=== PATIENT | male | born 1980 | race Hispanic/Latino ===

== ENCOUNTER 2021-11-10 00:16 | Emergency (ER) | payer SELFPAY ==
[2021-11-10 00:34] LABS: Absolute Lymphocytes (CBC) 3.5 K/uL (0.7-4.9); Hematocrit 42.6 % (39.6-49.0); Lymphocytes % 32.1 % (15.3-44.8); MPV 7.6 fL (7.6-11.3); RBC Red Blood Cell Count 4.78 M/uL (4.33-5.43)
[2021-11-10] MEDS ORDERED: PROMETHAZINE INJ 25 MG/ML AMP ONE (00:37)
[2021-11-10] MEDS ORDERED: MEPERIDINE HCL 25 MG/ML SYR ONE (00:38)
[2021-11-10 00:51] LABS: Albumin 4.2 g/dL (3.4-5.0); Bilirubin Total 0.5 mg/dL (0.2-1.0); Potassium 3.2 mmol/L (3.5-5.1); Protein, Total 7.2 g/dL (6.4-8.2)
[2021-11-10] MEDS ORDERED: MORPHINE 4 MG/ML SYR ONE (01:05)
[2021-11-10] MEDS ORDERED: HYDROMORPHONE HCL 1 MG/ML INJ ONE (02:07)
[2021-11-10] MEDS ORDERED: KETOROLAC 30 MG/ML INJ ONE (02:07)
[2021-11-10] MEDS ORDERED: MAGNESIUM SULFATE 1 gm IVPB 1 GM/100 ML BAG IV ONE (02:08)
[2021-11-10] MEDS ORDERED: TAMSULOSIN 0.4 MG SR CAP ONE (02:46)
--- NOTE | 2021-11-10 03:29 | EDPHYS ---
Physician Documentation [facility] Name: Ricardo Kaba Age: 41 yrs Sex: Male : 1980 Arrival Date: 11/10/2021 Time: 00:18 Bed 8 Private MD: ED Physician Sebastian Ortiz HPI: 11/10 01:10 This 41 yrs old Male presents to ER via EMS with complaints of abdominal pain. rn 01:10 The patient presents with abdominal pain right lower quadrant. Onset: The rn symptoms/episode began/occurred 1 hour(s) ago. The symptoms do not radiate. Associated signs and symptoms: Pertinent positives: constipation, nausea, Pertinent negatives: blood in stools, dysuria, fever, shortness of breath, vomiting blood. The symptoms are described as crampy, sharp. Modifying factors: The symptoms are alleviated by nothing, the symptoms are aggravated by nothing. Severity of pain: At its worst the pain was moderate in the emergency department the pain is unchanged. The patient has experienced a previous episode. The patient has not recently seen a physician. Pt reports sudden onset RLQ abd pain, began 1 year prior to arrival, assoc with nausea. No hx of kidney stones. Reports has happened once before and was told had bowel blockage, but given laxatives and "cleared up". No fever. NO trauma. No urinary symptoms. Given fentanyl and zofran by EMS with minimal alleviation of pain.. Historical: - Allergies: 00:24 No Known Allergies; lg3 - Home Meds: 00:24 None [Active]; lg3 - PMHx: 00:24 None; lg3 - PSHx: 00:24 None; lg3 - Immunization history:: Adult Immunizations up to date, Client reports having NOT received the Covid vaccine. - Social history:: Smoking status: Patient denies any tobacco usage or history of. Patient uses alcohol, occasionally. street drugs, marijuana. - Family history:: not pertinent. - Hospitalizations: : No recent hospitalization is reported. ROS: 01:10 Constitutional: Negative for fever, chills, and weight loss, Eyes: Negative for injury, rn pain, redness, and discharge, Neck: Negative for injury, pain, and swelling, Cardiovascular: Negative for chest pain, palpitations, and edema, Respiratory: Negative for shortness of breath, cough, wheezing, and pleuritic chest pain, Abdomen/GI: + RLQ abd pain, + nausea Back: Negative for injury and pain, : Negative for injury, bleeding, discharge, and swelling, MS/Extremity: Negative for injury and deformity, Skin: Negative for injury, rash, and discoloration, Neuro: Negative for headache, weakness, numbness, tingling, and seizure. Exam: 01:10 Constitutional: This is a well developed, well nourished patient who is awake, alert, rn looks uncomfortable Head/Face: Normocephalic, atraumatic. Cardiovascular: Regular rate and rhythm. No pulse deficits. Respiratory: No increased work of breathing, no retractions or nasal flaring. Abdomen/GI: soft, + mild RLQ tenderness, no rebound, no masses Skin: Warm, dry MS/ Extremity: Pulses equal, no cyanosis Neuro: Awake and alert, GCS 15 Vital Signs: 00:22 BP 130 / 82; Pulse 82; Resp 18; Pulse Ox 100% on R/A; Weight 94.35 kg (R); Height 5 ft. lg3 9 in. (175.26 cm) (R); Pain 10/10; 00:28 Temp 97.7(O); lg3 01:03 BP 125 / 88; Pulse 84; Resp 17 S; Pulse Ox 100% on R/A; lg3 02:12 BP 137 / 96; Pulse 76; Resp 18; Pulse Ox 99% on R/A; Pain 10/10; lg3 00:22 Body Mass Index 30.72 (94.35 kg, 175.26 cm) lg3 MDM: 00:19 Patient medically screened. rn 02:18 ED course: Pt finally feeling much better, 2mm UVJ stone, likely dropped into bladder, rn will observe for a little while and dc home. . 03:26 Differential diagnosis: diverticulitis, non-specific abd pain, Ureterolithiasis. Data rn reviewed: vital signs, nurses notes, lab test result(s), radiologic studies, CT scan, and as a result, I will discharge patient. 03:26 Counseling: I had a detailed discussion with the patient and/or guardian regarding: the rn historical points, exam findings, and any diagnostic results supporting the discharge/admit diagnosis, lab results, radiology results, the need for outpatient follow up, to return to the emergency department if symptoms worsen or persist or if there are any questions or concerns that arise at home. Response to treatment: the patient's symptoms have markedly improved after treatment, and as a result, I will discharge patient. Special discussion: I discussed with the patient/guardian in detail that at this point there is no indication for admission to the hospital. It is understood, however, that if the symptoms persist or worsen the patient needs to return immediately for re-evaluation. Based on the history and exam findings, there is no indication for further emergent testing or inpatient evaluation. I discussed with the patient/guardian the need to see the primary care provider for further evaluation of the symptoms. ED course: Pt markedly improved, no longer diaphoretic, pain controlled, sleeping comfortably. Has passed 2mm stone into bladder. Will dc home with prn pain meds and return precautions.. 11/10 00:19 Order name: CBC with Diff; Complete Time: 02:00 rn 11/10 00:19 Order name: CMP; Complete Time: 02:00 rn 11/10 00:19 Order name: Lipase; Complete Time: 02:00 rn 11/10 00:19 Order name: CT Stone Protocol rn 11/10 00:19 Order name: IV Saline Lock; Complete Time: : rn 11/10 00:19 Order name: Labs collected and sent; Complete Time: : rn Administered Medications: 00:39 Drug: Phenergan (promethazine) 12.5 mg Route: IVP; Site: right antecubital; lg3 00:40 Follow up: Response: No adverse reaction lg3 00:40 Drug: Demerol (meperidine) 25 mg Route: IVP; Site: right antecubital; lg3 00:40 Follow up: Response: No adverse reaction lg3 01:02 Drug: morphine 4 mg Route: IVP; Infused Over: 4 mins; Site: right antecubital; lg3 01:02 Follow up: Response: No adverse reaction lg3 02:09 Drug: Dilaudid (HYDROmorphone) 1 mg Route: IVP; Site: right antecubital; lg3 02:10 Follow up: Response: No adverse reaction lg3 02:10 Drug: Ketorolac 30 mg Route: IVP; Site: right antecubital; lg3 02:10 Follow up: Response: No adverse reaction lg3 02:10 Drug: Magnesium Sulfate 1 grams Route: IVPB; Infused Over: 1 hrs; Site: right lg3 antecubital; 02:10 Follow up: Response: No adverse reaction; IV Intake: 100ml lg3 02:43 Drug: Flomax (tamsulosin) 0.4 mg Route: PO; jb4 02:48 Follow up: Response: No adverse reaction lg3 Disposition Summary: 11/10/21 03:28 Discharge Ordered Location: Home rn Problem: new rn Symptoms: have improved rn Condition: Stable rn Diagnosis - Urinary calculus, unspecified rn Followup: rn - With: Private Physician - When: As needed - Reason: Recheck today's complaints, Re-evaluation by your physician Discharge Instructions: - Discharge Summary Sheet rn - Kidney Stones rn - Renal Colic rn Forms: - Medication Reconciliation Form rn - Thank You Letter rn - 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
--- NOTE | 2021-11-10 03:29 | ER ---
Nurse's Notes [facility] Name: Ricardo Kaba Age: 41 yrs Sex: Male : 1980 Arrival Date: 11/10/2021 Time: 00:18 Bed 8 Private MD: Diagnosis: Urinary calculus, unspecified Presentation: 11/10 00:22 Chief complaint: Patient states: right sided abdominal pain radiating to right groin. lg3 Coronavirus screen: Client denies travel out of the [place] in the last 14 days. At this time, the client does not indicate any symptoms associated with coronavirus-19. Ebola Screen: No symptoms or risks identified at this time. Initial Sepsis Screen: Does the patient meet any 2 criteria? No. Patient's initial sepsis screen is negative. Does the patient have a suspected source of infection? No. Patient's initial sepsis screen is negative. Risk Assessment: Do you want to hurt yourself or someone else? Patient reports no desire to harm self or others. Onset of symptoms was November 10, 2021. 00:22 Method Of Arrival: EMS: [facility] lg3 00:22 Acuity: BHAVIK 3 lg3 Triage Assessment: 00:24 General: Appears in no apparent distress. uncomfortable, Behavior is calm, cooperative. lg3 Pain: Complains of pain in right lower quadrant Pain radiates to groin and right femoral area. EENT: No deficits noted. No signs and/or symptoms were reported regarding the EENT system. Neuro: No deficits noted. Philippe Agitation-Sedation Scale (RASS): 0 - Alert and Calm Level of Consciousness is awake, alert, obeys commands, Oriented to person, place, time, situation. Cardiovascular: No deficits noted. Denies chest pain, shortness of breath, Capillary refill < 3 seconds Clubbing of nail beds is absent JVD is absent Patient's skin is warm and dry. Respiratory: No deficits noted. Airway is patent Trachea midline Respiratory effort is even, unlabored, Respiratory pattern is regular, symmetrical. GI: Reports lower abdominal pain, nausea, vomiting. : No deficits noted. No signs and/or symptoms were reported regarding the genitourinary system. Derm: No deficits noted. No signs and/or symptoms reported regarding the dermatologic system. Skin is intact, is healthy with good turgor, Skin is dry, Skin is pink, warm \T\ dry. Musculoskeletal: No deficits noted. No signs and/or symptoms reported regarding the musculoskeletal system. Circulation, motion, and sensation intact. Range of motion: intact in all extremities. Historical: - Allergies: 00:24 No Known Allergies; lg3 - Home Meds: 00:24 None [Active]; lg3 - PMHx: 00:24 None; lg3 - PSHx: 00:24 None; lg3 - Immunization history:: Adult Immunizations up to date, Client reports having NOT received the Covid vaccine. - Social history:: Smoking status: Patient denies any tobacco usage or history of. Patient uses alcohol, occasionally. street drugs, marijuana. - Family history:: not pertinent. - Hospitalizations: : No recent hospitalization is reported. Screenin:27 Abuse screen: Denies threats or abuse. Denies injuries from another. Nutritional lg3 screening: No deficits noted. Tuberculosis screening: No symptoms or risk factors identified. Fall Risk None identified. Assessment: 00:28 General: see triage assessment. lg3 01:03 Reassessment: Patient appears in no apparent distress at this time. No changes from lg3 previously documented assessment. Patient and/or family updated on plan of care and expected duration. Pain level reassessed. Patient is alert, oriented x 3, equal unlabored respirations, skin warm/dry/pink. 02:11 Pain: Complains of pain in right femoral area and groin Pain currently is 10 out of 10 lg3 on a pain scale. Noted to be grimacing, guarding, moaning, Also complains of nausea. Derm: Skin is clammy, diaphoretic. 03:32 Reassessment: Patient appears in no apparent distress at this time. No changes from lg3 previously documented assessment. Patient and/or family updated on plan of care and expected duration. Pain level reassessed. Patient is alert, oriented x 3, equal unlabored respirations, skin warm/dry/pink. Patient states feeling better. Vital Signs: 00:22 BP 130 / 82; Pulse 82; Resp 18; Pulse Ox 100% on R/A; Weight 94.35 kg (R); Height 5 ft. lg3 9 in. (175.26 cm) (R); Pain 10/10; 00:28 Temp 97.7(O); lg3 01:03 BP 125 / 88; Pulse 84; Resp 17 S; Pulse Ox 100% on R/A; lg3 02:12 BP 137 / 96; Pulse 76; Resp 18; Pulse Ox 99% on R/A; Pain 10/10; lg3 00:22 Body Mass Index 30.72 (94.35 kg, 175.26 cm) lg3 ED Course: 00:18 Patient arrived in ED. rn 00:19 Sebastian Ortiz MD is Attending Physician. rn 00:22 Iona Fofana RN is Primary Nurse. lg3 00:24 Triage completed. lg3 00:24 Arm band placed on left wrist. lg3 00:27 Patient has correct armband on for positive identification. Placed in gown. Bed in low lg3 position. Call light in reach. Side rails up X2. Client placed on continuous cardiac and pulse oximetry monitoring. NIBP monitoring applied. 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 Door closed. Noise minimized. Warm blanket given. 00:27 Maintain EMS IV. Dressing intact. Site clean \T\ dry. Gauge \T\ site: 20G RAC. lg 3 00:29 CBC with Diff Sent. lg3 00:29 CMP Sent. lg3 00:29 Lipase Sent. lg3 00:59 CT Stone Protocol In Process Unspecified. EDMS 03:32 No provider procedures requiring assistance completed. lg3 03:45 IV discontinued, intact, bleeding controlled, No redness/swelling at site. Pressure lg3 dressing applied. Administered Medications: 00:39 Drug: Phenergan (promethazine) 12.5 mg Route: IVP; Site: right antecubital; lg3 00:40 Follow up: Response: No adverse reaction lg3 00:40 Drug: Demerol (meperidine) 25 mg Route: IVP; Site: right antecubital; lg3 00:40 Follow up: Response: No adverse reaction lg3 01:02 Drug: morphine 4 mg Route: IVP; Infused Over: 4 mins; Site: right antecubital; lg3 01:02 Follow up: Response: No adverse reaction lg3 02:09 Drug: Dilaudid (HYDROmorphone) 1 mg Route: IVP; Site: right antecubital; lg3 02:10 Follow up: Response: No adverse reaction lg3 02:10 Drug: Ketorolac 30 mg Route: IVP; Site: right antecubital; lg3 02:10 Follow up: Response: No adverse reaction lg3 02:10 Drug: Magnesium Sulfate 1 grams Route: IVPB; Infused Over: 1 hrs; Site: right lg3 antecubital; 02:10 Follow up: Response: No adverse reaction; IV Intake: 100ml lg3 02:43 Drug: Flomax (tamsulosin) 0.4 mg Route: PO; jb4 02:48 Follow up: Response: No adverse reaction lg3 Medication: 00:28 VIS not applicable for this client. lg3 Intake: 02:10 IV: 100ml; Total: 100ml. lg3 Outcome: 03:28 Discharge ordered by . rn 03:45 Discharged to home ambulatory, with significant other. lg3 03:45 Condition: stable 03:45 Discharge instructions given to patient, significant other, Instructed on discharge instructions, medication usage, Demonstrated understanding of instructions, medications, Prescriptions given X 1. 03:45 Patient left the ED. lg3 Signatures: Dispatcher [employer] EDMS Sebastian Ortiz MD MD rn Bryson, James, RN RN jb4 Iona Fofana RN RN lg3
[2021-11-10 03:54] VITALS: TEMP 97.7
[2021-11-10 03:57] VITALS: BP 137/96; O2SAT 99
--- NOTE | 2021-11-11 17:35 | RAD REPORT ---
EXAM DESCRIPTION: CT ABDOMEN PELVIS WITHOUT IV CONTRAST CLINICAL HISTORY: Flank pain, kidney stone suspected COMPARISON: None. TECHNIQUE: CT ABDOMEN PELVIS WITHOUT IV CONTRAST on 11/10/2021 12:19 AM CDT This exam was performed according to our departmental dose-optimization program, which includes autom ated exposure control, adjustment of the mA and/or kV according to patient size and/or use of iterati ve reconstruction technique. FINDINGS: Lower lungs are clear. Abdomen: The liver is normal in appearance. There is no biliary dilatation. Gallbladder is normal in appearance. The pancreas and spleen are normal in appearance. Adrenal glands and left kidney are norm al. There is a probable tiny cyst in the mid to upper pole of the right kidney. This requires no furt her follow-up. There is mild right hydronephrosis secondary to a 2 mm UVJ calculus. Abdominal aorta is normal in course and caliber without aneurysm. There is no free air. There is no r etroperitoneal adenopathy. Pelvis: There is no bowel obstruction. Urinary bladder is unremarkable. There is no free fluid. Appen sangita is normal. Skeleton: There are no acute osseous findings. No suspicious bony lesions. IMPRESSION: Mildly obstructing 2 mm right UVJ calculus. Electronically signed by: Sam Yoder MD 11/10/2021 2:08 AM CDT Due to temporary technical issues with the PACS/Fluency reporting system, reports are being signed by the in house radiologists without review as a courtesy to insure prompt reporting. The interpreting radiologist is fully responsible for the content of the report.
== END 2021-11-10 03:45 | disposition home or self-care (01) ==
LOC: ER 00:16
DX: N20.9 Urinary calculus, unspecified (principal)
CPT/HCPCS: 36415; 74176; 76377; 80053; 83690; 85025; 96374; 96375; 99284; J1170; J2175; J2550; J3475; Q9967